=== PATIENT | male | born 1965 | race Caucasian/White ===

== ENCOUNTER 2016-08-15 13:17 | Emergency (ER) | payer SELFPAY ==
[~2016-08-15] VITALS: Ht 170.2 cm; Wt 109.0 kg
[~2016-08-15 13:17] MED LIST: ACETTAB3 OR; ALBUTEROL SUL0.083 % IN; AMOXICILLIN500 MG PO; ANUCORT-HC25 MG RE; ANUSOL HC25 MG RE; ASPIRIN LOW DOS81 M2 PO; AUGMENTIN875TAB OR; AVELOX400 MG OR; BL ADULT ASA81 MG OR; CELEXA40 MG PO; CEPHALEXIN500 M1 PO; CIPROFLOXACN500 MG PO; CITALOPRAM20 MG PO; CYCLOBENZAPR10 MG PO; HYDROCHLOROT12.5 MG PO; HYDROCHLOROT25 MG OR; HYDROCHLOROT25 MG PO; HYDROCHLOROTH12.5 MG OR; INCIVEK PO; KEFLEX500 MG PO; LASIX 20 MG TAB20 MG PO; LASIX20 MG PO; LISINOP/HCTZ1 TA2; LISINOP/HCTZ1 TA2 PO; LISINOPRIL20 M1 OR; LISINOPRIL20 M1 PO; LISINOPRIL20 MG OR; LISINOPRIL20 MG PO; LORTAB 5/3255 MG PO; LORTAB5 PO; MEDDOSEPAK PO; METFORMIN500 MG PO; METHOCARBAM500 MG PO; METHYLPRED4 M1 PO; METOPROLOL SUCC25 MG PO; METOPROLOL50 MG OR; NEURONTIN300 MG PO; NITROSTAT0.4 MG SL; ONETOUCH SC; OXYCODONE5 MG PO; PEGASYS180 MCG/M SC; PREDNISONE20 MG PO; PRINZIDE/ZESTOR1 TAB OR; PROAIR HFA IN; PROCTOFOAM HC10 GM RE; PROTONIX40 MG OR; PROVENTIL HFA IN; PROVENTIL0.083 % IN; RIBAVIRIN200 M1 OR; ROBITUSSIN PEAK COL4 OR; SYMBICORT1 AE1 IN; VENTOLIN HFA IN; VICODIN1 TAB OR; XIFAXAN550 MG PO; ZESTRIL5 MG OR; [UNRECOGNIZED DRUG - CODE] SC
[2016-08-15 14:14] LABS: ALBUMIN 4.9 g/dL (3.2-5.0); ALKALINE PHOSPHATASE 104 u/l (38-126); AMYLASE 69 u/l (30-110); ANION GAP 19 (6-22 (CALC)); BILIRUBIN, TOTAL 1.4 mg/dL (0.0-1.4); BUN 11 mg/dL (9-20); BUN/CREATININE RATIO 11 (12-20 (CALC)); CALCIUM 10.2 mg/dL (8.4-10.2); CARBON DIOXIDE 21 mmol/l (22-30); CHLORIDE 106 mmol/l (95-108); GFR > 60 ML/MIN (>=60 (CALC)); GFR FOR AFR.AMER. > 60 ML/MIN (>=60 (CALC)); GLUCOSE 91 mg/dL (75-110); LIPASE 110 u/l (23-300); POTASSIUM 4.6 mmol/l (3.5-5.1); SGOT/AST 32 u/l (17-59); SGPT/ALT 34 u/l (21-72); SODIUM 142 mmol/l (137-146); TOTAL PROTEIN 8.7 g/dL (6.3-8.2)
[2016-08-15 14:24] LABS: HEMATOCRIT 51.4 % (39.0-50.0); HEMOGLOBIN 17.2 g/dl (14.0-18.0); IMMATURE GRANULOCYTES 0.5 % (0.0-1.0); MEAN CELL VOLUME 88.8 fL CALC (80.0-100.0); MEAN CORPUSCULAR HGB 29.7 pG CALC (26.0-32.0); MEAN CORPUSCULAR HGB CONC 33.5 g/L CALC (32.0-36.0); NEUT# 7.55 thou/uL (1.82-7.42); RED BLOOD COUNT 5.79 mill/uL (4.70-6.10); RED CELL DISTRI WIDTH 12.9 % (11.5-15.5)
[2016-08-15 15:46] VITALS: BP 185/113
[2016-08-15 15:49] LABS: URINE BILIRUBIN - DIPSTICK NEGATIVE (NEGATIVE); URINE BLOOD DIPSTICK NEGATIVE (NEGATIVE); URINE CLARITY CLEAR; URINE COLOR YELLOW; URINE GLUCOSE - DIPSTICK NEGATIVE (NEGATIVE); URINE KETONE NEGATIVE (NEGATIVE); URINE LEUK ESTERASE NEGATIVE (NEGATIVE); URINE NITRITE - DIPSTICK NEGATIVE (Negative); URINE PROTEIN - DIPSTICK NEGATIVE (NEG-TRACE); URINE UROBILINOGEN - DIPSTICK 0.2 E.U./dL (0.2)
[2016-08-15] MEDS ORDERED: ULTRAM50 M1 PO (16:08)
[2016-08-15] MEDS ORDERED: FLEXERIL PO (16:08)
[2016-08-15 16:45] LABS: C. DIFFICILE TOXIN A&B NEGATIVE (NEGATIVE)
[2016-08-15] MEDS ORDERED: ZITHROMAX250 MG PO (17:26)
== END 2016-08-15 17:35 | disposition home or self-care (01) | DRG 392 ==
LOC: ED 13:17
PROVIDERS: Emergency Medicine
DX: R10.9 Unspecified abdominal pain (principal); I10 Essential (primary) hypertension; M54.9 Dorsalgia, unspecified; M79.1 Myalgia; I25.2 Old myocardial infarction; E66.9 Obesity, unspecified; B19.20 Unspecified viral hepatitis C without hepatic coma; J44.9 Chronic obstructive pulmonary disease, unspecified; E11.9 Type 2 diabetes mellitus without complications; F31.9 Bipolar disorder, unspecified; F17.210 Nicotine dependence, cigarettes, uncomplicated
CPT/HCPCS: Q9967

== ENCOUNTER 2016-08-16 16:56 | Emergency (ER) | payer SELFPAY ==
[~2016-08-16] VITALS: Ht 170.2 cm; Wt 105.0 kg
[~2016-08-16 16:56] MED LIST changes: +FLEXERIL PO; +ULTRAM50 M1 PO; +ZITHROMAX250 MG PO
[2016-08-16 17:20] LABS: HEMATOCRIT 47.5 % (39.0-50.0); IMMATURE GRANULOCYTES 0.5 % (0.0-1.0); MEAN CELL VOLUME 89.3 fL CALC (80.0-100.0); MEAN CORPUSCULAR HGB 30.1 pG CALC (26.0-32.0); MEAN CORPUSCULAR HGB CONC 33.7 g/L CALC (32.0-36.0); NEUT# 7.77 thou/uL (1.82-7.42); RED BLOOD COUNT 5.32 mill/uL (4.70-6.10); RED CELL DISTRI WIDTH 12.7 % (11.5-15.5)
[2016-08-16 17:44] LABS: MYOGLOBIN 66 ng/mL (0 - 121)
[2016-08-16 18:21] LABS: ALBUMIN 3.8 g/dL (3.2-5.0); ALKALINE PHOSPHATASE 86 u/l (38-126); ANION GAP 14 (6-22 (CALC)); BILIRUBIN, TOTAL 1.1 mg/dL (0.0-1.4); BUN 11 mg/dL (9-20); BUN/CREATININE RATIO 10 (12-20 (CALC)); CALCIUM 8.9 mg/dL (8.4-10.2); CARBON DIOXIDE 20 mmol/l (22-30); CHLORIDE 107 mmol/l (95-108); GFR > 60 ML/MIN (>=60 (CALC)); GFR FOR AFR.AMER. > 60 ML/MIN (>=60 (CALC)); GLUCOSE 123 mg/dL (75-110); POTASSIUM 3.8 mmol/l (3.5-5.1); SGOT/AST 32 u/l (17-59); SGPT/ALT 33 u/l (21-72); SODIUM 138 mmol/l (137-146); TOTAL PROTEIN 7.1 g/dL (6.3-8.2)
[2016-08-16 18:22] VITALS: BP 100/68
== END 2016-08-16 18:24 | disposition left against medical advice (07) | DRG 312 ==
LOC: ED 16:56
PROVIDERS: Emergency Medicine
DX: R55 Syncope and collapse (principal); I10 Essential (primary) hypertension; Z91.19 Patient's noncompliance with other medical treatment and regimen; R94.31 Abnormal electrocardiogram [ECG] [EKG]; I25.2 Old myocardial infarction

== ENCOUNTER 2017-03-02 11:49 | Emergency (ER) | payer SELFPAY ==
[~2017-03-02] VITALS: Ht 170.2 cm; Wt 110.0 kg
[2017-03-02 12:43] LABS: HEMATOCRIT 48.3 % (39.0-50.0); HEMOGLOBIN 16.3 g/dl (14.0-18.0); IMMATURE GRANULOCYTES 0.4 % (0.0-1.0); MEAN CELL VOLUME 91.5 fL CALC (80.0-100.0); MEAN CORPUSCULAR HGB 30.9 pG CALC (26.0-32.0); MEAN CORPUSCULAR HGB CONC 33.7 g/L CALC (32.0-36.0); NEUT# 6.52 thou/uL (1.82-7.42); RED BLOOD COUNT 5.28 mill/uL (4.70-6.10); RED CELL DISTRI WIDTH 13.7 % (11.5-15.5)
[2017-03-02 13:07] LABS: ALBUMIN 4.6 g/dL (3.2-5.0); ALKALINE PHOSPHATASE 89 u/l (38-126); ANION GAP 20 (6-22 (CALC)); BILIRUBIN, TOTAL 1.1 mg/dL (0.0-1.4); BUN 7 mg/dL (9-20); BUN/CREATININE RATIO 8 (12-20 (CALC)); CALCIUM 9.6 mg/dL (8.4-10.2); CARBON DIOXIDE 21 mmol/l (22-30); CHLORIDE 112 mmol/l (95-108); CREATININE 0.9 mg/dL (0.7-1.3); GFR > 60 ML/MIN (>=60 (CALC)); GFR FOR AFR.AMER. > 60 ML/MIN (>=60 (CALC)); GLUCOSE 101 mg/dL (75-110); POTASSIUM 4.1 mmol/l (3.5-5.1); SGOT/AST 41 u/l (17-59); SGPT/ALT 51 u/l (21-72); SODIUM 149 mmol/l (137-146)
[2017-03-02 13:19] LABS: MYOGLOBIN 67 ng/mL (0 - 121)
[2017-03-02 14:00] LABS: URINE BILIRUBIN - DIPSTICK NEGATIVE (NEGATIVE); URINE BLOOD DIPSTICK NEGATIVE (NEGATIVE); URINE COLOR YELLOW; URINE GLUCOSE - DIPSTICK NEGATIVE (NEGATIVE); URINE KETONE NEGATIVE (NEGATIVE); URINE LEUK ESTERASE NEGATIVE (NEGATIVE); URINE NITRITE - DIPSTICK NEGATIVE (Negative); URINE PROTEIN - DIPSTICK NEGATIVE (NEG-TRACE); URINE SPECIFIC GRAVITY <=1.005; URINE UROBILINOGEN - DIPSTICK 0.2 E.U./dL (0.2)
[2017-03-02 14:04] VITALS: BP 172/108
[2017-03-02 14:09] LABS: URINE CLARITY CLEAR
[2017-03-02 14:11] LABS: BARBITURATES NEGATIVE (NEGATIVE); COCAINE NEGATIVE (NEGATIVE); METHADONE NEGATIVE (NEGATIVE); OXCYCODONE NEGATIVE (NEGATIVE); TETRAHYDROCANNABIONOL POSITIVE (NEGATIVE); TRICYLIC ANTIDEPRESSANTS NEGATIVE (NEGATIVE)
== END 2017-03-02 14:04 | disposition left against medical advice (07) | DRG 313 ==
LOC: ED 11:49
PROVIDERS: Emergency Medicine
DX: R07.9 Chest pain, unspecified (principal); I25.2 Old myocardial infarction; B19.20 Unspecified viral hepatitis C without hepatic coma; E11.9 Type 2 diabetes mellitus without complications; I10 Essential (primary) hypertension; E66.9 Obesity, unspecified; F31.9 Bipolar disorder, unspecified; J44.9 Chronic obstructive pulmonary disease, unspecified; F17.210 Nicotine dependence, cigarettes, uncomplicated; Z86.73 Personal history of transient ischemic attack (TIA), and cerebral infarction without residual deficits; Z91.19 Patient's noncompliance with other medical treatment and regimen

== ENCOUNTER 2017-03-22 12:23 | Emergency (ER) | payer SELFPAY ==
[~2017-03-22] VITALS: Ht 170.2 cm; Wt 110.0 kg
[2017-03-22] MEDS ORDERED: XANAX1 MG PO (12:35)
[2017-03-22] MEDS ORDERED: AMBIEN5 MG PO (12:35)
[2017-03-22] MEDS ORDERED: VENLAFAXINE HCL75 M1 PO (12:36)
[2017-03-22] MEDS ORDERED: LISINOPRIL20 M1 PO (12:37)
[2017-03-22] MEDS ORDERED: TORADOL PO (15:07)
[2017-03-22] MEDS ORDERED: FLEXERIL PO (15:07)
[2017-03-22 15:13] VITALS: BP 150/80
== END 2017-03-22 15:13 | disposition home or self-care (01) | DRG 605 ==
LOC: ED 12:23
DX: S20.212A Contusion of left front wall of thorax, initial encounter (principal); F17.210 Nicotine dependence, cigarettes, uncomplicated; R06.02 Shortness of breath; S22.32XD Fracture of one rib, left side, subsequent encounter for fracture with routine healing; W19.XXXA Unspecified fall, initial encounter; Y93.9 Activity, unspecified; Y92.009 Unspecified place in unspecified non-institutional (private) residence as the place of occurrence of the external cause

== ENCOUNTER 2017-04-13 13:17 | Emergency (ER) | payer SELFPAY ==
[~2017-04-13] VITALS: Ht 170.2 cm; Wt 100.0 kg
[~2017-04-13 13:17] MED LIST changes: +AMBIEN5 MG PO; +TORADOL PO; +VENLAFAXINE HCL75 M1 PO; +XANAX1 MG PO
[2017-04-13 14:05] LABS: HEMOGLOBIN 17.3 g/dl (14.0-18.0); IMMATURE GRANULOCYTES 0.6 % (0.0-1.0); MEAN CELL VOLUME 89.9 fL CALC (80.0-100.0); MEAN CORPUSCULAR HGB 31.1 pG CALC (26.0-32.0); MEAN CORPUSCULAR HGB CONC 34.6 g/L CALC (32.0-36.0); NEUT# 7.51 thou/uL (1.82-7.42); RED BLOOD COUNT 5.56 mill/uL (4.70-6.10); RED CELL DISTRI WIDTH 12.5 % (11.5-15.5)
[2017-04-13 14:16] LABS: ALBUMIN 4.5 g/dL (3.2-5.0); ALKALINE PHOSPHATASE 105 u/l (38-126); ANION GAP 16 (6-22 (CALC)); BILIRUBIN, TOTAL 1.2 mg/dL (0.0-1.4); BUN 11 mg/dL (9-20); BUN/CREATININE RATIO 11 (12-20 (CALC)); CALCIUM 10.2 mg/dL (8.4-10.2); CARBON DIOXIDE 19 mmol/l (22-30); CHLORIDE 110 mmol/l (95-108); GFR > 60 ML/MIN (>=60 (CALC)); GFR FOR AFR.AMER. > 60 ML/MIN (>=60 (CALC)); GLUCOSE 106 mg/dL (75-110); POTASSIUM 4.3 mmol/l (3.5-5.1); SGOT/AST 30 u/l (17-59); SGPT/ALT 37 u/l (21-72); SODIUM 141 mmol/l (137-146); TOTAL PROTEIN 7.6 g/dL (6.3-8.2)
[2017-04-13 14:25] LABS: MYOGLOBIN 38 ng/mL (0 - 121)
[2017-04-13] MEDS ORDERED: LISINOPRIL20 MG PO (15:23)
[2017-04-13] MEDS ORDERED: TORADOL PO (15:23)
[2017-04-13 15:35] VITALS: BP 161/112
== END 2017-04-13 15:35 | disposition home or self-care (01) | DRG 313 ==
LOC: ED 13:17
PROVIDERS: Emergency Medicine
DX: R07.89 Other chest pain (principal); S20.212D Contusion of left front wall of thorax, subsequent encounter; Z91.81 History of falling

== ENCOUNTER 2017-07-02 15:38 | Emergency (ER) | payer SELFPAY ==
[~2017-07-02] VITALS: Ht 170.2 cm; Wt 104.0 kg
[2017-07-02] MEDS ORDERED: MOTRIN400 MG PO (17:21)
[2017-07-02] MEDS ORDERED: AUGMENTIN875TAB PO (17:21)
[2017-07-02] MEDS ORDERED: HYDROCO/APAP1 TA9 PO (17:21)
[2017-07-02 18:09] VITALS: BP 145/75
== END 2017-07-02 18:09 | disposition home or self-care (01) | DRG 605 ==
LOC: ED 15:38
PROC: 0HQFXZZ Repair Right Hand Skin, External Approach (ICD-10-PCS; principal; 2017-07-02)
DX: S61.451A Open bite of right hand, initial encounter (principal); S61.250A Open bite of right index finger without damage to nail, initial encounter; J43.9 Emphysema, unspecified; B19.20 Unspecified viral hepatitis C without hepatic coma; I25.2 Old myocardial infarction; F17.210 Nicotine dependence, cigarettes, uncomplicated; W54.0XXA Bitten by dog, initial encounter; Y92.009 Unspecified place in unspecified non-institutional (private) residence as the place of occurrence of the external cause; Z86.73 Personal history of transient ischemic attack (TIA), and cerebral infarction without residual deficits

== ENCOUNTER 2017-08-09 10:59 | Emergency (ER) | payer SELFPAY ==
[~2017-08-09] VITALS: Ht 170.2 cm; Wt 100.0 kg
[~2017-08-09 10:59] MED LIST changes: +AUGMENTIN875TAB PO; +HYDROCO/APAP1 TA9 PO; +MOTRIN400 MG PO
[2017-08-09] MEDS ORDERED: VENLAFAXINE HCL75 M1 PO (11:08)
[2017-08-09] MEDS ORDERED: SINEQUAN10 MG PO (11:09)
[2017-08-09 11:38] LABS: HEMATOCRIT 48.1 % (39.0-50.0); HEMOGLOBIN 16.1 g/dl (14.0-18.0); IMMATURE GRANULOCYTES 0.4 % (0.0-1.0); MEAN CELL VOLUME 90.2 fL CALC (80.0-100.0); MEAN CORPUSCULAR HGB 30.2 pG CALC (26.0-32.0); MEAN CORPUSCULAR HGB CONC 33.5 g/L CALC (32.0-36.0); NEUT# 6.24 thou/uL (1.82-7.42); RED BLOOD COUNT 5.33 mill/uL (4.70-6.10); RED CELL DISTRI WIDTH 13.2 % (11.5-15.5)
[2017-08-09 11:50] LABS: INFLUENZA A NONE DETECTED (NONE DETECT); INFLUENZA B NONE DETECTED (NONE DETECT)
[2017-08-09 11:54] LABS: ANION GAP 18 (6-22 (CALC)); BUN 7 mg/dL (9-20); BUN/CREATININE RATIO 9 (12-20 (CALC)); CARBON DIOXIDE 20 mmol/l (22-30); CHLORIDE 110 mmol/l (95-108); CREATININE 0.8 mg/dL (0.7-1.3); GFR > 60 ML/MIN (>=60 (CALC)); GFR FOR AFR.AMER. > 60 ML/MIN (>=60 (CALC)); POTASSIUM 3.8 mmol/l (3.5-5.1); SODIUM 144 mmol/l (137-146)
[2017-08-09] MEDS ORDERED: CEPHALEXIN500 M1 PO (12:12)
[2017-08-09] MEDS ORDERED: PREDNISONE50 MG PO (12:12)
[2017-08-09] MEDS ORDERED: ZPAK PO (12:12)
[2017-08-09 12:24] VITALS: BP 161/104
== END 2017-08-09 12:30 | disposition home or self-care (01) | DRG 191 ==
LOC: ED 10:59
PROVIDERS: Family Medicine
DX: J44.1 Chronic obstructive pulmonary disease with (acute) exacerbation (principal); L03.113 Cellulitis of right upper limb; S61.451D Open bite of right hand, subsequent encounter; F17.210 Nicotine dependence, cigarettes, uncomplicated; I10 Essential (primary) hypertension; I25.2 Old myocardial infarction; W54.0XXD Bitten by dog, subsequent encounter; Z86.73 Personal history of transient ischemic attack (TIA), and cerebral infarction without residual deficits

== ENCOUNTER 2017-09-11 17:44 | Emergency (ER) | payer SELFPAY ==
[~2017-09-11] VITALS: Ht 170.2 cm; Wt 100.0 kg
[~2017-09-11 17:44] MED LIST changes: +PREDNISONE50 MG PO; +SINEQUAN10 MG PO; +ZPAK PO
[2017-09-11 18:33] VITALS: BP 145/95
== END 2017-09-11 18:36 | disposition home or self-care (01) | DRG 880 ==
LOC: ED 17:44
DX: F41.9 Anxiety disorder, unspecified (principal); F31.9 Bipolar disorder, unspecified; I10 Essential (primary) hypertension; J43.9 Emphysema, unspecified; B19.20 Unspecified viral hepatitis C without hepatic coma; I25.2 Old myocardial infarction; F17.210 Nicotine dependence, cigarettes, uncomplicated; Z86.73 Personal history of transient ischemic attack (TIA), and cerebral infarction without residual deficits; Z91.14 Patient's other noncompliance with medication regimen; Z79.899 Other long term (current) drug therapy

== ENCOUNTER 2018-04-27 19:30 | Emergency (ER) | payer SELFPAY ==
[~2018-04-27] VITALS: Ht 170.2 cm; Wt 105.2 kg
[2018-04-27 19:55] VITALS: BP 192/121
== END 2018-04-27 20:05 | disposition left against medical advice (07) | DRG 951 ==
LOC: ED 19:30
DX: Z91.19 Patient's noncompliance with other medical treatment and regimen (principal)

== ENCOUNTER 2018-05-01 18:23 | Emergency (ER) | payer BC ==
[~2018-05-01] VITALS: Ht 170.2 cm; Wt 104.8 kg
[2018-05-01 19:45] LABS: HEMATOCRIT 49.4 % (39.0-50.0); HEMOGLOBIN 16.8 g/dl (14.0-18.0); IMMATURE GRANULOCYTES 0.4 % (0.0-5.0); MEAN CELL VOLUME 90.1 fL CALC (80.0-100.0); MEAN CORPUSCULAR HGB 30.7 pG CALC (26.0-32.0); NEUT# 6.56 thou/uL (1.82-7.42); RED BLOOD COUNT 5.48 mill/uL (4.70-6.10); RED CELL DISTRI WIDTH 12.8 % (11.5-15.5)
[2018-05-01 20:01] LABS: ALBUMIN 4.4 g/dL (3.2-5.0); ALKALINE PHOSPHATASE 92 u/l (38-126); AMYLASE < 30 u/l (30-110); ANION GAP 14 (6-22 (CALC)); BUN 10 mg/dL (9-20); BUN/CREATININE RATIO 12 (12-20 (CALC)); CARBON DIOXIDE 22 mmol/l (22-30); CHLORIDE 109 mmol/l (95-108); CREATININE 0.9 mg/dL (0.7-1.3); GFR > 60 ML/MIN (>=60 (CALC)); GFR FOR AFR.AMER. > 60 ML/MIN (>=60 (CALC)); LIPASE 45 u/l (23-300); POTASSIUM 3.6 mmol/l (3.5-5.1); SGOT/AST 26 u/l (17-59); SODIUM 141 mmol/l (137-146); TOTAL PROTEIN 7.6 g/dL (6.3-8.2)
[2018-05-01 20:10] LABS: URINE BILIRUBIN - DIPSTICK NEGATIVE (NEGATIVE); URINE BLOOD DIPSTICK NEGATIVE (NEGATIVE); URINE COLOR YELLOW; URINE GLUCOSE - DIPSTICK NEGATIVE (NEGATIVE); URINE KETONE TRACE mg/dL (NEGATIVE); URINE LEUK ESTERASE NEGATIVE (NEGATIVE); URINE NITRITE - DIPSTICK NEGATIVE (Negative); URINE PH 7.5 (4.5-8.0); URINE PROTEIN - DIPSTICK NEGATIVE (NEG-TRACE); URINE SPECIFIC GRAVITY 1.015
[2018-05-01 20:13] LABS: BARBITURATES NEGATIVE (NEGATIVE); COCAINE NEGATIVE (NEGATIVE); METHADONE NEGATIVE (NEGATIVE); OXCYCODONE NEGATIVE (NEGATIVE); TETRAHYDROCANNABIONOL POSITIVE (NEGATIVE); TRICYLIC ANTIDEPRESSANTS NEGATIVE (NEGATIVE)
[2018-05-01 21:21] VITALS: BP 159/86
[2018-05-01] MEDS ORDERED: NAPROSYN500 MG PO (21:21)
== END 2018-05-01 21:33 | disposition home or self-care (01) | DRG 392 ==
LOC: ED 18:23
PROVIDERS: Emergency Medicine
DX: R10.11 Right upper quadrant pain (principal); I10 Essential (primary) hypertension; J43.9 Emphysema, unspecified; I25.2 Old myocardial infarction; T46.5X6A Underdosing of other antihypertensive drugs, initial encounter; F17.200 Nicotine dependence, unspecified, uncomplicated; B19.20 Unspecified viral hepatitis C without hepatic coma; Z86.73 Personal history of transient ischemic attack (TIA), and cerebral infarction without residual deficits; Z91.128 Patient's intentional underdosing of medication regimen for other reason
CPT/HCPCS: Q9967; S0164

== ENCOUNTER 2018-06-08 11:32 | Emergency (ER) | payer BC ==
[~2018-06-08] VITALS: Ht 170.2 cm; Wt 105.0 kg
[~2018-06-08 11:32] MED LIST changes: +NAPROSYN500 MG PO
[2018-06-08] MEDS ORDERED: WELLBUTRIN SR150 MG PO (11:45)
[2018-06-08] MEDS ORDERED: PROAIR HFA IN (11:46)
[2018-06-08] MEDS ORDERED: PROVENTIL0.083 % IN (11:47)
[2018-06-08] MEDS ORDERED: SINEQUAN10 MG PO (11:49)
[2018-06-08 11:51] LABS: HEMATOCRIT 49.8 % (39.0-50.0); HEMOGLOBIN 16.5 g/dl (14.0-18.0); IMMATURE GRANULOCYTES 0.5 % (0.0-5.0); MEAN CELL VOLUME 89.1 fL CALC (80.0-100.0); MEAN CORPUSCULAR HGB 29.5 pG CALC (26.0-32.0); MEAN CORPUSCULAR HGB CONC 33.1 g/L CALC (32.0-36.0); NEUT# 11.78 thou/uL (1.82-7.42); RED BLOOD COUNT 5.59 mill/uL (4.70-6.10); RED CELL DISTRI WIDTH 12.6 % (11.5-15.5)
[2018-06-08 12:05] VITALS: BP 145/86
[2018-06-08 12:12] LABS: ANION GAP 15 (6-22 (CALC)); BUN 7 mg/dL (9-20); BUN/CREATININE RATIO 9 (12-20 (CALC)); CARBON DIOXIDE 18 mmol/l (22-30); CHLORIDE 109 mmol/l (95-108); CREATININE 0.8 mg/dL (0.7-1.3); GFR > 60 ML/MIN (>=60 (CALC)); GFR FOR AFR.AMER. > 60 ML/MIN (>=60 (CALC)); POTASSIUM 3.7 mmol/l (3.5-5.1); SODIUM 138 mmol/l (137-146)
== END 2018-06-08 12:14 | disposition short-term general hospital (02) | DRG 282 ==
LOC: ED 11:32
PROVIDERS: Family Medicine
DX: I21.19 ST elevation (STEMI) myocardial infarction involving other coronary artery of inferior wall (principal); I25.2 Old myocardial infarction; I10 Essential (primary) hypertension; R07.9 Chest pain, unspecified; R11.0 Nausea; R06.02 Shortness of breath; F17.200 Nicotine dependence, unspecified, uncomplicated
CPT/HCPCS: J1644

== ENCOUNTER 2018-10-31 21:19 | Emergency (ER) | payer BC ==
[~2018-10-31] VITALS: Ht 170.2 cm; Wt 106.0 kg
[~2018-10-31 21:19] MED LIST changes: +WELLBUTRIN SR150 MG PO
[2018-10-31] MEDS ORDERED: LIPITOR10 M1 PO (21:33)
[2018-10-31] MEDS ORDERED: WELLBUTRIN SR150 MG PO (21:40)
[2018-10-31] MEDS ORDERED: VENLAFAXINE H37.5 MG PO ×2 (21:42)
[2018-10-31] MEDS ORDERED: XANAX1 MG PO (21:43)
[2018-10-31] MEDS ORDERED: DOXEPIN HCL50 MG PO (21:44)
[2018-10-31] MEDS ORDERED: AMBIEN5 MG PO (21:45)
[2018-10-31 22:06] LABS: HEMOGLOBIN 15.8 g/dl (14.0-18.0); IMMATURE GRANULOCYTES 0.4 % (0.0-5.0); MEAN CELL VOLUME 88.9 fL CALC (80.0-100.0); MEAN CORPUSCULAR HGB 29.3 pG CALC (26.0-32.0); MEAN CORPUSCULAR HGB CONC 32.9 g/L CALC (32.0-36.0); NEUT# 6.07 thou/uL (1.82-7.42); RED BLOOD COUNT 5.4 mill/uL (4.70-6.10); RED CELL DISTRI WIDTH 13.2 % (11.5-15.5)
[2018-10-31 22:25] LABS: ALBUMIN 4.7 g/dL (3.2-5.0); ALKALINE PHOSPHATASE 103 u/l (38-126); ANION GAP 15 (6-22 (CALC)); BILIRUBIN, TOTAL 0.7 mg/dL (0.0-1.4); BUN 13 mg/dL (9-20); BUN/CREATININE RATIO 13 (12-20 (CALC)); CHLORIDE 107 mmol/l (95-108); GFR > 60 ML/MIN (>=60 (CALC)); GFR FOR AFR.AMER. > 60 ML/MIN (>=60 (CALC)); SGOT/AST 40 u/l (17-59); SODIUM 142 mmol/l (137-146)
[2018-10-31 22:32] LABS: CARBON DIOXIDE 24 mmol/l (22-30)
[2018-10-31 22:37] LABS: MYOGLOBIN 90 ng/mL (0 - 121)
[2018-10-31 22:42] LABS: URINE BILIRUBIN - DIPSTICK NEGATIVE (NEGATIVE); URINE BLOOD DIPSTICK NEGATIVE (NEGATIVE); URINE COLOR YELLOW; URINE GLUCOSE - DIPSTICK NEGATIVE (NEGATIVE); URINE KETONE TRACE mg/dL (NEGATIVE); URINE LEUK ESTERASE NEGATIVE (NEGATIVE); URINE NITRITE - DIPSTICK NEGATIVE (Negative); URINE PH 5.5 (4.5-8.0); URINE PROTEIN - DIPSTICK NEGATIVE (NEG-TRACE); URINE SPECIFIC GRAVITY >=1.030; URINE UROBILINOGEN - DIPSTICK 0.2 E.U./dL (0.2)
[2018-10-31 22:46] LABS: BARBITURATES NEGATIVE (NEGATIVE); COCAINE NEGATIVE (NEGATIVE); METHADONE NEGATIVE (NEGATIVE); TETRAHYDROCANNABIONOL POSITIVE (NEGATIVE); TRICYLIC ANTIDEPRESSANTS POSITIVE (NEGATIVE)
[2018-10-31 22:47] LABS: OXCYCODONE NEGATIVE (NEGATIVE)
[2018-10-31] MEDS ORDERED: FIORICET PO (23:03)
[2018-10-31 23:11] VITALS: BP 165/91
== END 2018-10-31 23:15 | disposition home or self-care (01) | DRG 103 ==
LOC: ED 21:19
PROVIDERS: Emergency Medicine
DX: R51 Headache (principal); I10 Essential (primary) hypertension; J43.9 Emphysema, unspecified; B19.20 Unspecified viral hepatitis C without hepatic coma; F17.200 Nicotine dependence, unspecified, uncomplicated; I25.2 Old myocardial infarction; Z86.73 Personal history of transient ischemic attack (TIA), and cerebral infarction without residual deficits

== ENCOUNTER 2018-11-27 17:31 | Emergency (ER) | payer BC ==
[~2018-11-27] VITALS: Ht 170.2 cm; Wt 150.0 kg
[~2018-11-27 17:31] MED LIST changes: +DOXEPIN HCL50 MG PO; +FIORICET PO; +LIPITOR10 M1 PO; +VENLAFAXINE H37.5 MG PO
[2018-11-27 18:37] LABS: HEMATOCRIT 53.9 % (39.0-50.0); HEMOGLOBIN 17.7 g/dl (14.0-18.0); IMMATURE GRANULOCYTES 0.8 % (0.0-5.0); MEAN CELL VOLUME 88.4 fL CALC (80.0-100.0); MEAN CORPUSCULAR HGB CONC 32.8 g/L CALC (32.0-36.0); NEUT# 9.4 thou/uL (1.82-7.42); RED BLOOD COUNT 6.1 mill/uL (4.70-6.10); RED CELL DISTRI WIDTH 13.2 % (11.5-15.5)
[2018-11-27 18:44] LABS: ALBUMIN 5.3 g/dL (3.2-5.0); ALKALINE PHOSPHATASE 115 u/l (38-126); ANION GAP 16 (6-22 (CALC)); BUN 9 mg/dL (9-20); BUN/CREATININE RATIO 9 (12-20 (CALC)); C-REACTIVE PROTEIN < 0.5 mg/dL (0-0.9); CARBON DIOXIDE 23 mmol/l (22-30); CHLORIDE 108 mmol/l (95-108); CREATININE 0.9 mg/dL (0.7-1.3); GFR > 60 ML/MIN (>=60 (CALC)); GFR FOR AFR.AMER. > 60 ML/MIN (>=60 (CALC)); POTASSIUM 4.8 mmol/l (3.5-5.1); SODIUM 142 mmol/l (137-146); TOTAL PROTEIN 9.4 g/dL (6.3-8.2)
[2018-11-27 18:49] LABS: BILIRUBIN, TOTAL 1.2 mg/dL (0.0-1.4); SGOT/AST 75 u/l (17-59)
[2018-11-27 19:46] LABS: URINE BLOOD DIPSTICK NEGATIVE (NEGATIVE); URINE COLOR YELLOW; URINE GLUCOSE - DIPSTICK NEGATIVE (NEGATIVE); URINE KETONE NEGATIVE (NEGATIVE); URINE LEUK ESTERASE NEGATIVE (NEGATIVE); URINE NITRITE - DIPSTICK NEGATIVE (Negative); URINE PROTEIN - DIPSTICK NEGATIVE (NEG-TRACE)
[2018-11-27 19:48] LABS: URINE BILIRUBIN - DIPSTICK NEGATIVE (NEGATIVE)
[2018-11-27 19:49] LABS: COCAINE NEGATIVE (NEGATIVE); TETRAHYDROCANNABIONOL POSITIVE (NEGATIVE)
[2018-11-27 19:50] LABS: BARBITURATES NEGATIVE (NEGATIVE); METHADONE NEGATIVE (NEGATIVE); OXCYCODONE NEGATIVE (NEGATIVE); TRICYLIC ANTIDEPRESSANTS POSITIVE (NEGATIVE)
[2018-11-27 21:20] VITALS: BP 166/94
== END 2018-11-27 21:20 | disposition home or self-care (01) | DRG 305 ==
LOC: ED 17:31 → ED-I 11-28 01:03
PROVIDERS: Emergency Medicine
DX: I10 Essential (primary) hypertension (principal); F41.9 Anxiety disorder, unspecified; T45.0X5A Adverse effect of antiallergic and antiemetic drugs, initial encounter; J43.9 Emphysema, unspecified; B19.20 Unspecified viral hepatitis C without hepatic coma; I25.2 Old myocardial infarction; F17.210 Nicotine dependence, cigarettes, uncomplicated; Z86.73 Personal history of transient ischemic attack (TIA), and cerebral infarction without residual deficits
CPT/HCPCS: J2060

== ENCOUNTER 2019-03-14 | Emergency (ER) | payer BC ==
--- NOTE | 2019-03-14 12:55 | NUR ---
PT BROUGHT DIRECTLY TO ROOM FOR BEDSIDE TRIAGE. PT REPORTS RINGING IN EARS AND DIZZINESS X 2 DAYS, PT DENEIS ANY WEAKNESS TO EXTREMITIES. PT ABLE TO TRANSFER SELF TO BED WITH NO ASSIST. PT SPEECH CLEAR WITH NORMAL FACIAL SYMMETRY. VISUAL MCKEON INTACT. MD AT BEDSIDE. PT REPORTS SENSATION CHANGES TO RIGHT SIDE FACE PT UNABLE TO DESCRIBED CHANGES, HE DENIES DECREASE IN SENSATION STATES IT FEELS DIFFERENT. LAST KNOWN WELL WAS 03/12/19 AT 1300. IV INITIATED AND LABS COLLECTED. STROKE ALERT CALLED AT 1304
--- NOTE | 2019-03-14 13:05 | NUR ---
PT TAKEN DIRECTLY TO CT SCAN. DURING TRIP PT REPORTS HE HAS DIFFICULTY SAYING WHAT HE IS THINKING FOR THE PAST 2 DAYS WELL.
[2019-03-14 13:12] LABS: HEMATOCRIT 48.1 % (39.0-50.0); HEMOGLOBIN 16.1 g/dl (14.0-18.0); IMMATURE GRANULOCYTES 0.3 % (0.0-5.0); MEAN CELL VOLUME 89.2 fL CALC (80.0-100.0); MEAN CORPUSCULAR HGB 29.9 pG CALC (26.0-32.0); MEAN CORPUSCULAR HGB CONC 33.5 g/L CALC (32.0-36.0); NEUT# 4.97 thou/uL (1.82-7.42); RED BLOOD COUNT 5.39 mill/uL (4.70-6.10); RED CELL DISTRI WIDTH 13.1 % (11.5-15.5)
[2019-03-14 13:26] LABS: PROTHROMBIN TIME 10.8 SECONDS (9.0-12.5)
[2019-03-14 13:29] LABS: ALBUMIN 4.4 g/dL (3.2-5.0); ALKALINE PHOSPHATASE 82 u/l (38-126); ANION GAP 16 (6-22 (CALC)); BILIRUBIN, TOTAL 0.9 mg/dL (0.0-1.4); BUN 8 mg/dL (9-20); BUN/CREATININE RATIO 10 (12-20 (CALC)); CARBON DIOXIDE 23 mmol/l (22-30); CHLORIDE 105 mmol/l (95-108); CREATININE 0.7 mg/dL (0.7-1.3); GFR > 60 ML/MIN (>=60 (CALC)); GFR FOR AFR.AMER. > 60 ML/MIN (>=60 (CALC)); POTASSIUM 4.1 mmol/l (3.5-5.1); SGOT/AST 51 u/l (17-59); SODIUM 140 mmol/l (137-146); TOTAL PROTEIN 8.2 g/dL (6.3-8.2)
--- NOTE | 2019-03-14 13:30 | NUR ---
PT RETURNED FROM CT IN STABLE CONDITION. PT REPORT TO TEN FELXI.
--- NOTE | 2019-03-14 14:49 | NUR ---
Merchandise Flow Manager called by RAFY RIOS - wishes to admit Patient with diagnosis of CVA - Using Indicia criteria, play writer able to meet PAtient under Observation TIA with information available to play writer at this time. Merchandise Flow Manager called RAFY RIOS and relayed this information.
[2019-03-14 14:57] LABS: URINE BILIRUBIN - DIPSTICK NEGATIVE (NEGATIVE); URINE BLOOD DIPSTICK NEGATIVE (NEGATIVE); URINE COLOR YELLOW; URINE GLUCOSE - DIPSTICK NEGATIVE (NEGATIVE); URINE KETONE NEGATIVE (NEGATIVE); URINE LEUK ESTERASE NEGATIVE (NEGATIVE); URINE NITRITE - DIPSTICK NEGATIVE (Negative); URINE PROTEIN - DIPSTICK NEGATIVE (NEG-TRACE); URINE UROBILINOGEN - DIPSTICK 0.2 E.U./dL (0.2)
--- NOTE | 2019-03-14 15:41 | NUR ---
PT REPOSITIONS SELF ON STRETCHER. VSS. AWARE OF PENDING ADMIT.
[2019-03-14 16:27] LABS: CHOLESTEROL HDL RATIO 6.8 (<4.4 (CALC))
--- NOTE | 2019-03-14 16:45 | NUR ---
PT ADVISED OF CONTINUED WAIT TIME. DENIES ANY DISCOMFORT. VSS IV SITE HEALTHY
--- NOTE | 2019-03-14 17:13 | NUR ---
Patient decides to leave AMA. Multiple attempts made to ecourage patient to remain here for continued treatment. Explained to patient all risks of leaving against medical advice including . Pt verbalized understanding of all risks. Pt also encouraged to return to [facility] at any time, especially if symptoms continue or become worse. Pt verbalized understanding. ACCOMPANIED BY SON W/STEADY GAIT.
== END 2019-03-14 17:13 | disposition left against medical advice (07) | DRG 66 ==
PROVIDERS: Family Medicine; Internal Medicine
DX: I63.9 Cerebral infarction, unspecified (principal); R20.0 Anesthesia of skin; R47.01 Aphasia; H93.13 Tinnitus, bilateral; I10 Essential (primary) hypertension; J43.9 Emphysema, unspecified; F17.200 Nicotine dependence, unspecified, uncomplicated; I25.2 Old myocardial infarction; Z86.73 Personal history of transient ischemic attack (TIA), and cerebral infarction without residual deficits; Z91.19 Patient's noncompliance with other medical treatment and regimen
CPT/HCPCS: Q9967

== ENCOUNTER 2019-05-09 | Emergency (ER) | payer SELFPAY ==
[2019-05-09] MEDS ORDERED: TOPROL XL50 MG PO (16:27)
[2019-05-09 17:01] LABS: HEMATOCRIT 45.6 % (39.0-50.0); HEMOGLOBIN 14.9 g/dl (14.0-18.0); IMMATURE GRANULOCYTES 0.3 % (0.0-5.0); MEAN CELL VOLUME 89.2 fL CALC (80.0-100.0); MEAN CORPUSCULAR HGB 29.2 pG CALC (26.0-32.0); MEAN CORPUSCULAR HGB CONC 32.7 g/L CALC (32.0-36.0); NEUT# 7.07 thou/uL (1.82-7.42); RED BLOOD COUNT 5.11 mill/uL (4.70-6.10); RED CELL DISTRI WIDTH 13.1 % (11.5-15.5)
[2019-05-09 17:19] LABS: ALBUMIN 4.3 g/dL (3.2-5.0); ALKALINE PHOSPHATASE 86 u/l (38-126); ANION GAP 15 (6-22 (CALC)); BILIRUBIN, TOTAL 0.9 mg/dL (0.0-1.4); BUN 9 mg/dL (9-20); BUN/CREATININE RATIO 11 (12-20 (CALC)); CARBON DIOXIDE 22 mmol/l (22-30); CHLORIDE 106 mmol/l (95-108); CREATININE 0.8 mg/dL (0.7-1.3); GFR > 60 ML/MIN (>=60 (CALC)); GFR FOR AFR.AMER. > 60 ML/MIN (>=60 (CALC)); POTASSIUM 3.7 mmol/l (3.5-5.1); SGOT/AST 60 u/l (17-59); SODIUM 139 mmol/l (137-146); TOTAL PROTEIN 7.8 g/dL (6.3-8.2)
[2019-05-09 17:30] LABS: PROTHROMBIN TIME 10.9 SECONDS (9.0-12.5)
[2019-05-09] MEDS ORDERED: PROVENTIL108 MCG/AC IN (19:09)
[2019-05-09] MEDS ORDERED: ZITHROMAX Z-PA250 MG PO (19:09)
[2019-05-09] MEDS ORDERED: TESSALON PER100 MG PO (19:09)
[2019-05-09] MEDS ORDERED: MEDDOSEPAK PO (19:09)
== END 2019-05-09 20:00 | disposition home or self-care (01) | DRG 203 ==
PROVIDERS: Emergency Medicine
DX: J40 Bronchitis, not specified as acute or chronic (principal); I10 Essential (primary) hypertension; J43.9 Emphysema, unspecified; F17.210 Nicotine dependence, cigarettes, uncomplicated; I25.2 Old myocardial infarction; Z86.73 Personal history of transient ischemic attack (TIA), and cerebral infarction without residual deficits

== ENCOUNTER 2019-05-11 | Emergency (ER) | payer SELFPAY ==
[~2019-05-11] MED LIST changes: +PROVENTIL108 MCG/AC IN; +TESSALON PER100 MG PO; +TOPROL XL50 MG PO; +ZITHROMAX Z-PA250 MG PO
[2019-05-11 16:14] LABS: HEMATOCRIT 46.3 % (39.0-50.0); HEMOGLOBIN 15.5 g/dl (14.0-18.0); IMMATURE GRANULOCYTES 0.6 % (0.0-5.0); MEAN CELL VOLUME 88.9 fL CALC (80.0-100.0); MEAN CORPUSCULAR HGB 29.8 pG CALC (26.0-32.0); MEAN CORPUSCULAR HGB CONC 33.5 g/L CALC (32.0-36.0); NEUT# 6.58 thou/uL (1.82-7.42); RED BLOOD COUNT 5.21 mill/uL (4.70-6.10); RED CELL DISTRI WIDTH 13.2 % (11.5-15.5)
[2019-05-11 16:59] LABS: ALBUMIN 4.2 g/dL (3.2-5.0); ALKALINE PHOSPHATASE 81 u/l (38-126); ANION GAP 14 (6-22 (CALC)); BILIRUBIN, TOTAL 1.2 mg/dL (0.0-1.4); BUN 11 mg/dL (9-20); BUN/CREATININE RATIO 13 (12-20 (CALC)); CARBON DIOXIDE 22 mmol/l (22-30); CHLORIDE 102 mmol/l (95-108); CREATININE 0.9 mg/dL (0.7-1.3); GFR > 60 ML/MIN (>=60 (CALC)); GFR FOR AFR.AMER. > 60 ML/MIN (>=60 (CALC)); POTASSIUM 3.6 mmol/l (3.5-5.1); SGOT/AST 72 u/l (17-59); SODIUM 135 mmol/l (137-146); TOTAL PROTEIN 7.5 g/dL (6.3-8.2)
[2019-05-11 18:13] LABS: PROTHROMBIN TIME 10.9 SECONDS (9.0-12.5)
[2019-05-11 19:15] LABS: URINE BILIRUBIN - DIPSTICK NEGATIVE (NEGATIVE); URINE BLOOD DIPSTICK NEGATIVE (NEGATIVE); URINE COLOR YELLOW; URINE GLUCOSE - DIPSTICK NEGATIVE (NEGATIVE); URINE KETONE NEGATIVE (NEGATIVE); URINE LEUK ESTERASE NEGATIVE (NEGATIVE); URINE NITRITE - DIPSTICK NEGATIVE (Negative); URINE PH 5.5 (4.5-8.0); URINE PROTEIN - DIPSTICK NEGATIVE (NEG-TRACE); URINE UROBILINOGEN - DIPSTICK 0.2 E.U./dL (0.2)
== END 2019-05-11 19:50 | disposition short-term general hospital (02) | DRG 311 ==
PROVIDERS: Family Medicine
DX: I20.0 Unstable angina (principal); I10 Essential (primary) hypertension; J43.9 Emphysema, unspecified; I25.2 Old myocardial infarction; F17.210 Nicotine dependence, cigarettes, uncomplicated
CPT/HCPCS: J1644

== ENCOUNTER 2019-05-16 14:31 | Inpatient (IN) | payer SELFPAY ==
[~2019-05-16] VITALS: Ht 170.2 cm; Wt 113.0 kg
--- NOTE | 2019-05-16 14:31 | NUR ---
PATIENT TO ROOM VIA EMS AND PHYSICIAN AT BEDSIDE FOR EVAL
[2019-05-16 15:07] LABS: HEMOGLOBIN 16.2 g/dl (14.0-18.0); IMMATURE GRANULOCYTES 1.3 % (0.0-5.0); MEAN CELL VOLUME 87.3 fL CALC (80.0-100.0); MEAN CORPUSCULAR HGB 29.5 pG CALC (26.0-32.0); MEAN CORPUSCULAR HGB CONC 33.8 g/L CALC (32.0-36.0); NEUT# 15.57 thou/uL (1.82-7.42); RED BLOOD COUNT 5.5 mill/uL (4.70-6.10); RED CELL DISTRI WIDTH 12.7 % (11.5-15.5)
[2019-05-16 15:25] LABS: ALBUMIN 4.1 g/dL (3.2-5.0); ALKALINE PHOSPHATASE 97 u/l (38-126); ANION GAP 16 (6-22 (CALC)); BUN 13 mg/dL (9-20); BUN/CREATININE RATIO 17 (12-20 (CALC)); CARBON DIOXIDE 23 mmol/l (22-30); CHLORIDE 101 mmol/l (95-108); CREATININE 0.7 mg/dL (0.7-1.3); GFR > 60 ML/MIN (>=60 (CALC)); GFR FOR AFR.AMER. > 60 ML/MIN (>=60 (CALC)); POTASSIUM 4.1 mmol/l (3.5-5.1); SGOT/AST 70 u/l (17-59); SODIUM 136 mmol/l (137-146); TOTAL PROTEIN 7.3 g/dL (6.3-8.2)
--- NOTE | 2019-05-16 15:29 | NUR ---
PATIENT RESTING AWAITNG LAB AND RADIOLOGY RESULTS PATIENT DENIES ANY PAIN OR SOB AT THIS TIME
[2019-05-16 15:36] LABS: MYOGLOBIN 121 ng/mL (0 - 121)
[2019-05-16 15:40] LABS: BILIRUBIN, TOTAL 1.9 mg/dL (0.0-1.4)
--- NOTE | 2019-05-16 18:15 | NUR ---
REPORT RECEIVED. CARE ASSUMED. PATIENT RECEIVING ABX. AWARE OF ADMISSION. AWAITING NURSE ASSIGNMENT TO GIVE REPORT.
--- NOTE | 2019-05-16 18:30 | NUR ---
REPORT CALLED TO TEN SÁNCHEZ. PATIENT READIED FOR TRANSPORT TO FLOOR VIA STRETCHER, ON MONITOR.
--- NOTE | 2019-05-16 19:22 | NUR ---
PT ARRIVED TO FLOOR VIA WHEELCHAIR ACCOMPAINED BY ER STAFF. PT ALERT AND ORIENTED. NO APPARENT RESPIRATORY DISTRESS NOTED. PT DENIES ANY PAIN OR DISCOMFORT. PT AMBULATED WITH STEADY GAIT. ORIENTED TO ROOM AND CALL LIGHT SYSTEM. CALL LIGHT WITHIN REACH. WILL CONTINUE TO MONITOR.
[2019-05-16 19:25] VITALS: BP 183/109
--- NOTE | 2019-05-16 19:25 | NUR ---
PATIENT TO FLOOR VIA WHEELCHAIR, ON MONITOR, WITH RN.
[2019-05-16 20:20] VITALS: BP 155/105
[2019-05-16 21:15] VITALS: BP 174/96
--- NOTE | 2019-05-16 21:21 | NUR ---
ORDERS CLARIFIED WITH HAND BOOTMAKER PHYSICIAN.
[2019-05-16 22:02] LABS: URINE BILIRUBIN - DIPSTICK NEGATIVE (NEGATIVE); URINE BLOOD DIPSTICK NEGATIVE (NEGATIVE); URINE COLOR YELLOW; URINE GLUCOSE - DIPSTICK NEGATIVE (NEGATIVE); URINE KETONE NEGATIVE (NEGATIVE); URINE LEUK ESTERASE NEGATIVE (NEGATIVE); URINE NITRITE - DIPSTICK NEGATIVE (Negative); URINE PROTEIN - DIPSTICK NEGATIVE (NEG-TRACE); URINE UROBILINOGEN - DIPSTICK 0.2 E.U./dL (0.2)
[2019-05-16 23:15] VITALS: BP 165/92
--- NOTE | 2019-05-16 23:41 | NUR ---
RN ON SHIFT TO ADMINISTER IV APRESOLINE FOR SUSTAINED BP OF 165/92. WILL CONTINUE TO MONITOR.
[2019-05-17 01:15] VITALS: BP 151/74
--- NOTE | 2019-05-17 01:15 | NUR ---
BP NOW 151/74. PT RESTING IN BED WITH EYES CLOSED. NO APPARENT DISTRESS NOTED. WILL CONTINUE TO MONITOR.
[2019-05-17 03:30] VITALS: BP 128/71
--- NOTE | 2019-05-17 05:49 | NUR ---
PT RESTING IN BED WITH EYES CLOSED. NO APPARENT DISTRESS NOTED. CALL LIGHT WITHIN REACH. WILL CONTINUE TO MONITOR.
--- NOTE | 2019-05-17 07:45 | NUR ---
REPORT RECEIVED FROM SHIRA CHRISTIAN. PT RESTING IN BED ON RIGHT SIDE AND EYES CLOSED; AWAKENS TO VERBAL STIMULI; ORIENTED X 3. DENIES PAIN. RESPIRATIONS EVEN AND UNLABORED ON ROOM AIR. WHEEZING THROUGHOUT LUNGS; DENIES SOB. PLAN OF CARE REVIWED. PT ENCOURAGED TO VERBALIZE CONCERNS. STATES UNDERSTANDING. SAFETY MEASURES IN PLACE. CALL LIGHT WITHIN REACH.
[2019-05-17 08:00] VITALS: BP 140/72
--- NOTE | 2019-05-17 11:08 | NUR ---
PT CALLED REQUESTING BREATHING TREATMENT FOR SOB; RT AT BEDSIDE.
--- NOTE | 2019-05-17 12:04 | NUR ---
PT RESTING IN BED ON RIGHT SIDE; BREATHING HAS IMPROVED PT STATES BREATHING TREATMENT WAS EFFECTIVE. SPO2 97% ON ROOM AIR. IV SITE APPEARS HEALTHY AND FLUSHES. NO OTHER REQUESTS OR CONCERNS AT THIS TIME. CALL LIGHT WITHIN REACH.
[2019-05-17 16:00] VITALS: BP 129/86
[2019-05-17] MEDS ORDERED: METFORMIN1000 MG PO (16:12)
[2019-05-17] MEDS ORDERED: PROAIR HFA108 MCG/AC IN (16:12)
[2019-05-17] MEDS ORDERED: LISINOPRIL20 M1 PO (16:13)
[2019-05-17] MEDS ORDERED: ADVAIR DISKU IN (16:14)
[2019-05-17] MEDS ORDERED: DOXEPIN HCL50 MG PO (16:15)
[2019-05-17] MEDS ORDERED: SPIRIVA HANDIH18 MCG IN (16:16)
[2019-05-17] MEDS ORDERED: VENLAFAXINE150 MG PO (16:17)
[2019-05-17] MEDS ORDERED: ZOLPIDEM10 M1 PO (16:19)
[2019-05-17] MEDS ORDERED: BUPROPION HCL300 MG PO (16:20)
--- NOTE | 2019-05-17 17:40 | NUR ---
PT CALLED FOR BREATHING TREATMENT FOR SOB; RT AT BEDSIDE. XANAX GIVEN AT THIS TIME. ZOSYN INFUSING WITHOUT DIFFICULTY; IV SITE APPEARS HEALTHY.
--- NOTE | 2019-05-17 19:15 | NUR ---
REPORT FROM ASHANTI CAAL. PT RESTING IN BED WITH EYES CLOSED. PT WAKES EASILY. ALERT AND ORIENTED. PT DENIES ANY PAIN OR DISCOMFORT. NO APPARENT RESPIRATORY DISTRESS NOTED. DISCUSSED POC, PT VERBALIZED UNDERSTANDING. IV SITE APPEARS HEALTHY. TIMBER SIZER IN PLACE. CALL LIGHT WITHIN REACH. WILL CONTINUE TO MONITOR.
[2019-05-17 19:45] VITALS: BP 145/91
--- NOTE | 2019-05-17 23:04 | NUR ---
PT MEDICATED FOR ANXIETY UPON REQUEST. SNACK PROVIDED AND RT NOTIFIED OF PT NEED FOR BREATHING TX. NO APPARENT S/S OF RESPIRATORY DISTRESS NOTED. CALL LIGHT WITHIN REACH. WILL CONTINUE TO MONITOR.
[2019-05-18 00:24] VITALS: BP 137/80
--- NOTE | 2019-05-18 03:12 | NUR ---
PT RESTING IN BED WITH EYES CLOSED. NO APPARENT DISTRESS NOTED. CALL LIGHT WITHIN REACH. WILL CONTINUE TO MONITOR.
[2019-05-18 04:25] VITALS: BP 157/86
--- NOTE | 2019-05-18 07:10 | NUR ---
REPORT RECEIVED FROM SHIRA CHRISTIAN. PT RESTING ON BED ON LEFT SIDE WITH EYES CLOSED AND NO SIGNS OF DISTRESS. RESPIRATIONS EVEN AND UNLABORED ON ROOM AIR. AWAKENS SPONTANEOUSLY; ALERT AND ORIENTED. DENIES PAIN. ACCU CHECK 277. LUNGS HAVE EXPIRATORY WHEEZES; DRY COUGH. NO EDEMA. IV SITE APPEARS HEALTHY AND FLUSHES. SAFETY MEASURES IN PLACE. CALL LIGHT WITHIN REACH.
[2019-05-18 07:38] VITALS: BP 144/74
--- NOTE | 2019-05-18 11:09 | NUR ---
APRESOLINE AND XANAX GIVEN NOW FOR ELEVATED BLOOD PRESSURE. PT ADAMANT THAT HE WILL BE DISCHARGED TODAY. ENCOURAGED TO RELAX. 3 UNITS OF INSULIN GIVEN FOR ACCU CHECK OF 251.
[2019-05-18 12:00] VITALS: BP 177/105
[2019-05-18 12:42] VITALS: BP 136/75
--- NOTE | 2019-05-18 13:02 | NUR ---
BLOOD PRESSURE IMPROVED AND PT MORE RELAXED. ATE 100% OF LUNCH. ZOSYN INFUSED WITHOUT DIFFICULTY. NO OTHER REQUESTS OR CONCERNS AT THIS TIME.
[2019-05-18] MEDS ORDERED: WIXELA INHUB 101 AER IN (15:24)
[2019-05-18] MEDS ORDERED: IPRATROPIU0.5 MG/3 M IN (15:24)
[2019-05-18] MEDS ORDERED: AMOX/K CLAV875 M1 PO (15:24)
--- NOTE | 2019-05-18 15:46 | NUR ---
Discharge instructions given. Patient verbalizes understanding of same. Discharged in stable condition via Ambulatory to Home with spouse. All belongings sent with pt.
--- NOTE | 2019-05-23 14:15 | NUR ---
post discharge pneumonia follow up call made today. Pt. states his breathing is somewhat better, but not great. Says he had some chills, but no fever he is aware of. Has not seen PCP for follow up. Did not get discharge medications due to financial hardship. Pt. is attempting to qualify for Medicaid but has not gotten too far yet. Pt. is expecting a phone call from [facility] as the next step in the appproval process. Pt. states he has medications prescribed from [facility] at [facility] that he has been unable to fill. I contacted Micky Sanchez, Software Applications Engineer to investigate the possibility of assistance. Pharmacy will contact patient for further information if necessary.
--- NOTE | 2019-05-23 16:12 | NUR ---
s/w Yadira concerning patient's inability to pay for meds. After discussion with patient, meds were transferred to [facility] and filled via Direct Bill on 05/23/2019. 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
== END 2019-05-18 15:46 | disposition home or self-care (01) | DRG 190 ==
LOC: ED 14:31 → MS2 17:30
PROVIDERS: Emergency Medicine; ADMIT Internal Medicine; ATTEND Internal Medicine
DX: J43.9 Emphysema, unspecified (principal); J18.9 Pneumonia, unspecified organism; I10 Essential (primary) hypertension; F17.200 Nicotine dependence, unspecified, uncomplicated; B19.20 Unspecified viral hepatitis C without hepatic coma; I25.2 Old myocardial infarction; Z86.73 Personal history of transient ischemic attack (TIA), and cerebral infarction without residual deficits
CPT/HCPCS: Q9967

== ENCOUNTER 2020-06-02 11:31 | Emergency (ER) | payer OTHER ==
[~2020-06-02] VITALS: Ht 170.2 cm; Wt 109.0 kg
[~2020-06-02 11:31] MED LIST changes: +ADVAIR DISKU IN; +AMOX/K CLAV875 M1 PO; +BUPROPION HCL300 MG PO; +IPRATROPIU0.5 MG/3 M IN; +METFORMIN1000 MG PO; +PROAIR HFA108 MCG/AC IN; +SPIRIVA HANDIH18 MCG IN; +VENLAFAXINE150 MG PO; +WIXELA INHUB 101 AER IN; +ZOLPIDEM10 M1 PO
[2020-06-02 12:28] LABS: HEMOGLOBIN 16.9 g/dl (14.0-18.0); IMMATURE GRANULOCYTES 0.5 % (0.0-5.0); MEAN CELL VOLUME 90.4 fL CALC (80.0-100.0); MEAN CORPUSCULAR HGB 29.4 pG CALC (26.0-32.0); MEAN CORPUSCULAR HGB CONC 32.5 g/dL CAL (32.0-36.0); NEUT# 6.5 thou/uL (1.82-7.42); RED BLOOD COUNT 5.75 mill/uL (4.70-6.10); RED CELL DISTRI WIDTH 14.1 % (11.5-15.5)
[2020-06-02] MEDS ORDERED: XANAX1 MG PO (12:33)
[2020-06-02] MEDS ORDERED: SINEQUAN50 MG PO (12:34)
[2020-06-02] MEDS ORDERED: MARIJUANA (12:35)
[2020-06-02 12:40] LABS: URINE BILIRUBIN - DIPSTICK NEGATIVE (NEGATIVE); URINE BLOOD DIPSTICK NEGATIVE (NEGATIVE); URINE COLOR YELLOW; URINE GLUCOSE - DIPSTICK NEGATIVE (NEGATIVE); URINE KETONE NEGATIVE (NEGATIVE); URINE LEUK ESTERASE NEGATIVE (NEGATIVE); URINE NITRITE - DIPSTICK NEGATIVE (Negative); URINE PH 7.5 (4.5-8.0); URINE PROTEIN - DIPSTICK NEGATIVE (NEG-TRACE); URINE UROBILINOGEN - DIPSTICK 0.2 E.U./dL (0.2)
[2020-06-02 12:43] LABS: INTERNATIONAL NORMALIZED RATIO 1.1 RATIO (0.7-1.3); PROTHROMBIN TIME 10.9 SECONDS (9.0-12.5)
[2020-06-02 12:45] LABS: ALBUMIN 4.7 g/dL (3.2-5.0); ALKALINE PHOSPHATASE 80 u/l (38-126); AMYLASE 55 u/l (30-110); ANION GAP 15 (6-22 (CALC)); BILIRUBIN, TOTAL 1.2 mg/dL (0.0-1.4); BUN 8 mg/dL (9-20); BUN/CREATININE RATIO 10 (12-20 (CALC)); CARBON DIOXIDE 22 mmol/l (22-30); CHLORIDE 104 mmol/l (95-108); CREATININE 0.7 mg/dL (0.7-1.3); GFR > 60 ML/MIN (>=60 (CALC)); GFR FOR AFR.AMER. > 60 ML/MIN (>=60 (CALC)); LIPASE 31 u/l (23-300); POTASSIUM 4.2 mmol/l (3.5-5.1); SGOT/AST 56 u/l (17-59); SODIUM 137 mmol/l (137-146); TOTAL PROTEIN 8.7 g/dL (6.3-8.2)
[2020-06-02 12:55] LABS: MYOGLOBIN 66 ng/mL (0 - 121)
[2020-06-02] MEDS ORDERED: PREVACID30 M3 PO (14:19)
[2020-06-02 14:39] VITALS: BP 157/99
== END 2020-06-02 14:42 | disposition home or self-care (01) ==
LOC: ED 11:31
PROVIDERS: Emergency Medicine
DX: K62.5 Hemorrhage of anus and rectum (principal); K64.8 Other hemorrhoids; I10 Essential (primary) hypertension; J43.9 Emphysema, unspecified; B19.20 Unspecified viral hepatitis C without hepatic coma; F41.9 Anxiety disorder, unspecified; F17.210 Nicotine dependence, cigarettes, uncomplicated; I25.2 Old myocardial infarction; Z86.73 Personal history of transient ischemic attack (TIA), and cerebral infarction without residual deficits; Z20.822 Contact with and (suspected) exposure to COVID-19
CPT/HCPCS: Q9967; S0164

== ENCOUNTER 2020-06-20 19:03 | Emergency (ER) | payer OTHER ==
[~2020-06-20] VITALS: Ht 167.6 cm; Wt 109.0 kg
[~2020-06-20 19:03] MED LIST changes: +MARIJUANA; +PREVACID30 M3 PO; +SINEQUAN50 MG PO
[2020-06-20 19:26] LABS: HEMATOCRIT 48.9 % (39.0-50.0); HEMOGLOBIN 15.8 g/dl (14.0-18.0); IMMATURE GRANULOCYTES 0.5 % (0.0-5.0); MEAN CELL VOLUME 90.4 fL CALC (80.0-100.0); MEAN CORPUSCULAR HGB 29.2 pG CALC (26.0-32.0); MEAN CORPUSCULAR HGB CONC 32.3 g/dL CAL (32.0-36.0); NEUT# 9.11 thou/uL (1.82-7.42); RED BLOOD COUNT 5.41 mill/uL (4.70-6.10); RED CELL DISTRI WIDTH 14.6 % (11.5-15.5)
[2020-06-20 19:37] LABS: ALBUMIN 4.5 g/dL (3.2-5.0); ALKALINE PHOSPHATASE 88 u/l (38-126); ANION GAP 15 (6-22 (CALC)); BILIRUBIN, TOTAL 1.4 mg/dL (0.0-1.4); BUN 10 mg/dL (9-20); BUN/CREATININE RATIO 13 (12-20 (CALC)); CARBON DIOXIDE 20 mmol/l (22-30); CHLORIDE 105 mmol/l (95-108); CREATININE 0.7 mg/dL (0.7-1.3); GFR > 60 ML/MIN (>=60 (CALC)); GFR FOR AFR.AMER. > 60 ML/MIN (>=60 (CALC)); LIPASE 50 u/l (23-300); POTASSIUM 3.6 mmol/l (3.5-5.1); SGOT/AST 57 u/l (17-59); SODIUM 137 mmol/l (137-146)
[2020-06-20] MEDS ORDERED: DICLOFENAC SODI75 M1 PO (19:45)
[2020-06-20] MEDS ORDERED: LISINOPRIL40 MG PO (19:46)
[2020-06-20] MEDS ORDERED: ALPRAZOLAM1 MG PO (19:47)
[2020-06-20] MEDS ORDERED: SYMBICORT1 AE1 IN (19:49)
[2020-06-20 21:13] LABS: URINE BLOOD DIPSTICK NEGATIVE (NEGATIVE); URINE COLOR YELLOW; URINE GLUCOSE - DIPSTICK NEGATIVE (NEGATIVE); URINE KETONE NEGATIVE (NEGATIVE); URINE LEUK ESTERASE NEGATIVE (NEGATIVE); URINE PROTEIN - DIPSTICK NEGATIVE (NEG-TRACE); URINE SPECIFIC GRAVITY 1.015
[2020-06-20 21:14] LABS: URINE BILIRUBIN - DIPSTICK NEGATIVE (NEGATIVE); URINE NITRITE - DIPSTICK NEGATIVE (Negative)
[2020-06-20] MEDS ORDERED: VENTOLIN HFA IN (21:23)
[2020-06-20] MEDS ORDERED: DOXYCYCL HYC100 MG PO (21:23)
[2020-06-20] MEDS ORDERED: PREDNISONE50 MG PO (21:23)
[2020-06-20 21:41] VITALS: BP 142/85
== END 2020-06-20 22:07 | disposition home or self-care (01) ==
LOC: ED 19:03
DX: R07.9 Chest pain, unspecified (principal); J43.9 Emphysema, unspecified; F41.9 Anxiety disorder, unspecified; T42.4X6A Underdosing of benzodiazepines, initial encounter; T46.4X6A Underdosing of angiotensin-converting-enzyme inhibitors, initial encounter; I10 Essential (primary) hypertension; I25.2 Old myocardial infarction; F17.210 Nicotine dependence, cigarettes, uncomplicated; B19.20 Unspecified viral hepatitis C without hepatic coma; Z91.128 Patient's intentional underdosing of medication regimen for other reason; Z86.73 Personal history of transient ischemic attack (TIA), and cerebral infarction without residual deficits; Z20.822 Contact with and (suspected) exposure to COVID-19

== ENCOUNTER 2020-08-21 23:20 | Emergency (ER) | payer OTHER ==
[~2020-08-21] VITALS: Ht 167.6 cm; Wt 104.5 kg
[~2020-08-21 23:20] MED LIST changes: +ALPRAZOLAM1 MG PO; +DICLOFENAC SODI75 M1 PO; +DOXYCYCL HYC100 MG PO; +LISINOPRIL40 MG PO
[2020-08-21 23:49] LABS: HEMATOCRIT 54.5 % (39.0-50.0); IMMATURE GRANULOCYTES 0.5 % (0.0-5.0); MEAN CELL VOLUME 88.2 fL CALC (80.0-100.0); MEAN CORPUSCULAR HGB 29.3 pG CALC (26.0-32.0); MEAN CORPUSCULAR HGB CONC 33.2 g/dL CAL (32.0-36.0); NEUT# 9.84 thou/uL (1.82-7.42); RED BLOOD COUNT 6.18 mill/uL (4.70-6.10); RED CELL DISTRI WIDTH 13.6 % (11.5-15.5)
[2020-08-21 23:51] LABS: HEMOGLOBIN 18.1 g/dl (14.0-18.0)
[2020-08-22 00:08] LABS: ALBUMIN 4.8 g/dL (3.2-5.0); ALKALINE PHOSPHATASE 86 u/l (38-126); ANION GAP 20 (6-22 (CALC)); BUN 6 mg/dL (9-20); BUN/CREATININE RATIO 6 (12-20 (CALC)); CARBON DIOXIDE 18 mmol/l (22-30); CHLORIDE 106 mmol/l (95-108); CREATININE 0.9 mg/dL (0.7-1.3); GFR > 60 ML/MIN (>=60 (CALC)); GFR FOR AFR.AMER. > 60 ML/MIN (>=60 (CALC)); POTASSIUM 3.2 mmol/l (3.5-5.1); SGOT/AST 44 u/l (17-59); SODIUM 141 mmol/l (137-146); TOTAL PROTEIN 8.6 g/dL (6.3-8.2)
[2020-08-22 00:10] LABS: BILIRUBIN, TOTAL 2.1 mg/dL (0.0-1.4)
[2020-08-22] MEDS ORDERED: VENLAFAXINE37.5 M1 PO (00:26)
[2020-08-22 05:56] VITALS: BP 145/99
== END 2020-08-22 08:30 | disposition left against medical advice (07) ==
LOC: ED 23:20
PROVIDERS: Emergency Medicine
DX: R07.9 Chest pain, unspecified (principal); F41.9 Anxiety disorder, unspecified; I10 Essential (primary) hypertension; J43.9 Emphysema, unspecified; I25.2 Old myocardial infarction; B19.20 Unspecified viral hepatitis C without hepatic coma; F17.210 Nicotine dependence, cigarettes, uncomplicated; T42.4X6A Underdosing of benzodiazepines, initial encounter; Z91.128 Patient's intentional underdosing of medication regimen for other reason; Z86.73 Personal history of transient ischemic attack (TIA), and cerebral infarction without residual deficits; Z91.19 Patient's noncompliance with other medical treatment and regimen

== ENCOUNTER 2021-05-03 11:45 | Emergency (ER) | payer OTHER ==
[~2021-05-03] VITALS: Ht 167.6 cm; Wt 113.6 kg
[~2021-05-03 11:45] MED LIST changes: +VENLAFAXINE37.5 M1 PO
[2021-05-03 12:15] LABS: IMMATURE GRANULOCYTES 0.3 % (0.0-5.0); MEAN CELL VOLUME 92.3 fL CALC (80.0-100.0); MEAN CORPUSCULAR HGB 29.6 pG CALC (26.0-32.0); NEUT# 5.48 thou/uL (1.82-7.42); RED BLOOD COUNT 5.21 mill/uL (4.70-6.10); RED CELL DISTRI WIDTH 13.6 % (11.5-15.5)
[2021-05-03 12:17] LABS: HEMATOCRIT 48.1 % (39.0-50.0); HEMOGLOBIN 15.4 g/dl (14.0-18.0)
[2021-05-03 12:39] LABS: ALBUMIN 4.1 g/dL (3.2-5.0); ALKALINE PHOSPHATASE 106 u/l (38-126); BUN 5 mg/dL (9-20); BUN/CREATININE RATIO 8 (12-20 (CALC)); CHLORIDE 107 mmol/l (95-108); CREATININE 0.7 mg/dL (0.7-1.3); GFR > 60 ML/MIN (>=60 (CALC)); GFR FOR AFR.AMER. > 60 ML/MIN (>=60 (CALC)); LIPASE 56 u/l (23-300); SGOT/AST 50 u/l (17-59); SODIUM 138 mmol/l (137-146)
[2021-05-03 12:43] LABS: ANION GAP 13 (6-22 (CALC)); CARBON DIOXIDE 22 mmol/l (22-30); POTASSIUM 3.9 mmol/l (3.5-5.1)
[2021-05-03] MEDS ORDERED: TRAMADOL HYDROC50 M1 PO (14:09)
[2021-05-03 14:44] VITALS: BP 158/92
== END 2021-05-03 14:44 | disposition home or self-care (01) ==
LOC: ED 11:45
PROVIDERS: Family Medicine
DX: R07.81 Pleurodynia (principal); R59.0 Localized enlarged lymph nodes; I10 Essential (primary) hypertension; J43.9 Emphysema, unspecified; E66.9 Obesity, unspecified; I25.2 Old myocardial infarction; B19.20 Unspecified viral hepatitis C without hepatic coma; F41.9 Anxiety disorder, unspecified; F17.200 Nicotine dependence, unspecified, uncomplicated; W30.89XA Contact with other specified agricultural machinery, initial encounter; Y93.H1 Activity, digging, shoveling and raking; Z86.73 Personal history of transient ischemic attack (TIA), and cerebral infarction without residual deficits; Y92.007 Garden or yard of unspecified non-institutional (private) residence as the place of occurrence of the external cause
CPT/HCPCS: Q9967

== ENCOUNTER 2021-06-03 13:34 | Emergency (ER) | payer OTHER ==
[2021-06-03] VITALS (7 sets, daily range): BP systolic 144–202; BP diastolic 85–117
[~2021-06-03] VITALS: Ht 167.6 cm; Wt 113.0 kg
[~2021-06-03 13:34] MED LIST changes: +TRAMADOL HYDROC50 M1 PO
[2021-06-03 14:41] LABS: ALBUMIN 4.2 g/dL (3.2-5.0); ALKALINE PHOSPHATASE 115 u/l (38-126); AMYLASE 63 u/l (30-110); ANION GAP 14 (6-22 (CALC)); BILIRUBIN, TOTAL 0.6 mg/dL (0.0-1.4); BUN 7 mg/dL (9-20); BUN/CREATININE RATIO 10 (12-20 (CALC)); CARBON DIOXIDE 24 mmol/l (22-30); CHLORIDE 106 mmol/l (95-108); CREATININE 0.7 mg/dL (0.7-1.3); ETHYL ALCOHOL 0 mg/dl (0-30); GFR > 60 ML/MIN (>=60 (CALC)); GFR FOR AFR.AMER. > 60 ML/MIN (>=60 (CALC)); LIPASE 39 u/l (23-300); MAGNESIUM 1.9 mg/dL (1.6-2.3); POTASSIUM 3.9 mmol/l (3.5-5.1); SGOT/AST 46 u/l (17-59); SODIUM 140 mmol/l (137-146); TOTAL PROTEIN 7.9 g/dL (6.3-8.2)
[2021-06-03 14:49] LABS: HEMOGLOBIN 15.9 g/dl (14.0-18.0); IMMATURE GRANULOCYTES 0.6 % (0.0-5.0); MEAN CELL VOLUME 91.9 fL CALC (80.0-100.0); MEAN CORPUSCULAR HGB 29.8 pG CALC (26.0-32.0); MEAN CORPUSCULAR HGB CONC 32.4 g/dL CAL (32.0-36.0); NEUT# 6.12 thou/uL (1.82-7.42); RED BLOOD COUNT 5.33 mill/uL (4.70-6.10); RED CELL DISTRI WIDTH 13.3 % (11.5-15.5)
[2021-06-03 15:02] LABS: ACT PARTIAL THROMBO TIME 29.3 SECONDS (20.0-32.5); PROTHROMBIN TIME 10.4 SECONDS (9.0-12.5)
[2021-06-03 16:31] LABS: URINE BILIRUBIN - DIPSTICK NEGATIVE (NEGATIVE); URINE BLOOD DIPSTICK NEGATIVE (NEGATIVE); URINE COLOR YELLOW; URINE GLUCOSE - DIPSTICK NEGATIVE (NEGATIVE); URINE KETONE NEGATIVE (NEGATIVE); URINE LEUK ESTERASE NEGATIVE (NEGATIVE); URINE PROTEIN - DIPSTICK NEGATIVE (NEG-TRACE); URINE SPECIFIC GRAVITY 1.015; URINE UROBILINOGEN - DIPSTICK 0.2 E.U./dL (0.2)
[2021-06-03 16:34] LABS: URINE NITRITE - DIPSTICK NEGATIVE (Negative)
[2021-06-03] MEDS ORDERED: ULTRAM50 MG PO (16:54)
[2021-06-03] MEDS ORDERED: PROTONIX40 MG PO (16:54)
[2021-06-04] MEDS ORDERED: B12 FAST DIS5000 MCG (12:53)
[2021-06-04] MEDS ORDERED: FOLIC ACI1 PO (12:53)
[2021-06-04] MEDS ORDERED: GABAPENTIN300 M2 PO (12:53)
[2021-06-04] MEDS ORDERED: METOPROLOL SUCC50 MG PO (12:53)
[2021-06-04] MEDS ORDERED: VENLAFAXINE37.5 M2 PO (12:54)
== END 2021-06-03 17:25 | disposition home or self-care (01) ==
LOC: ED 13:34
DX: R10.10 Upper abdominal pain, unspecified (principal); I10 Essential (primary) hypertension; J43.9 Emphysema, unspecified; B19.20 Unspecified viral hepatitis C without hepatic coma; F41.9 Anxiety disorder, unspecified; F17.210 Nicotine dependence, cigarettes, uncomplicated; I25.2 Old myocardial infarction; Z86.73 Personal history of transient ischemic attack (TIA), and cerebral infarction without residual deficits
CPT/HCPCS: Q9967

== ENCOUNTER 2021-10-01 17:08 | Emergency (ER) | payer OTHER ==
[2021-10-01] VITALS (9 sets, daily range): BP systolic 121–166; BP diastolic 81–108
[~2021-10-01] VITALS: Ht 167.6 cm; Wt 110.0 kg
[~2021-10-01 17:08] MED LIST changes: +B12 FAST DIS5000 MCG; +B12 IM; +FOLIC ACI1 PO; +GABAPENTIN300 M2 PO; +METOPROLOL SUCC50 MG PO; +NITROGLYCERIN0.3 MG PO; +PROTONIX40 MG PO; +ULTRAM50 MG PO; +VENLAFAXINE37.5 M2 PO
[2021-10-01 18:03] LABS: IMMATURE GRANULOCYTES 0.7 % (0.0-5.0); MEAN CELL VOLUME 93.8 fL CALC (80.0-100.0); MEAN CORPUSCULAR HGB 29.9 pG CALC (26.0-32.0); MEAN CORPUSCULAR HGB CONC 31.9 g/dL CAL (32.0-36.0); NEUT# 5.3 thou/uL (1.82-7.42); RED BLOOD COUNT 5.01 mill/uL (4.70-6.10); RED CELL DISTRI WIDTH 13.1 % (11.5-15.5)
[2021-10-01 18:21] LABS: ALKALINE PHOSPHATASE 101 u/l (38-126); ANION GAP 10 (6-22 (CALC)); BILIRUBIN, TOTAL 0.8 mg/dL (0.0-1.4); BUN 5 mg/dL (9-20); BUN/CREATININE RATIO 7 (12-20 (CALC)); CARBON DIOXIDE 25 mmol/l (22-30); CHLORIDE 105 mmol/l (95-108); CREATININE 0.7 mg/dL (0.7-1.3); GFR FOR AFR.AMER. > 60 ML/MIN (>=60 (CALC)); GFR OTHER RACES > 60 ML/MIN (>=60 (CALC)); POTASSIUM 4.1 mmol/l (3.5-5.1); SGOT/AST 48 u/l (17-59); SODIUM 136 mmol/l (137-146); TOTAL PROTEIN 7.5 g/dL (6.3-8.2)
[2021-10-01 18:33] LABS: MYOGLOBIN 63 ng/mL (0 - 121)
== END 2021-10-01 19:01 | disposition left against medical advice (07) ==
LOC: ED 17:08
PROVIDERS: Emergency Medicine
DX: R07.9 Chest pain, unspecified (principal); I10 Essential (primary) hypertension; I25.10 Atherosclerotic heart disease of native coronary artery without angina pectoris; J43.9 Emphysema, unspecified; B19.20 Unspecified viral hepatitis C without hepatic coma; I25.2 Old myocardial infarction; F17.200 Nicotine dependence, unspecified, uncomplicated; Z86.73 Personal history of transient ischemic attack (TIA), and cerebral infarction without residual deficits; Z20.822 Contact with and (suspected) exposure to COVID-19; Z91.19 Patient's noncompliance with other medical treatment and regimen

== ENCOUNTER 2021-11-01 10:31 | Emergency (ER) | payer OTHER ==
[~2021-11-01] VITALS: Ht 167.6 cm; Wt 97.7 kg
[2021-11-01 11:12] LABS: HEMOGLOBIN 16.9 g/dl (14.0-18.0); IMMATURE GRANULOCYTES 0.3 % (0.0-5.0); MEAN CORPUSCULAR HGB 30.3 pG CALC (26.0-32.0); MEAN CORPUSCULAR HGB CONC 34.5 g/dL CAL (32.0-36.0); NEUT# 8.8 thou/uL (1.82-7.42); RED BLOOD COUNT 5.58 mill/uL (4.70-6.10); RED CELL DISTRI WIDTH 12.6 % (11.5-15.5)
[2021-11-01 11:22] LABS: GFR FOR AFR.AMER. > 60 ML/MIN (>=60 (CALC)); GFR OTHER RACES > 60 ML/MIN (>=60 (CALC))
[2021-11-01 11:23] LABS: MEAN CELL VOLUME 87.8 fL CALC (80.0-100.0)
[2021-11-01 11:40] LABS: ALBUMIN 4.4 g/dL (3.2-5.0); ALKALINE PHOSPHATASE 103 u/l (38-126); ANION GAP 18 (6-22 (CALC)); BUN 16 mg/dL (9-20); BUN/CREATININE RATIO 16 (12-20 (CALC)); CARBON DIOXIDE 21 mmol/l (22-30); CHLORIDE 100 mmol/l (95-108); GFR FOR AFR.AMER. > 60 ML/MIN (>=60 (CALC)); GFR OTHER RACES > 60 ML/MIN (>=60 (CALC)); POTASSIUM 3.9 mmol/l (3.5-5.1); SGOT/AST 57 u/l (17-59); SODIUM 135 mmol/l (137-146)
[2021-11-01 11:48] LABS: BILIRUBIN, TOTAL 2.4 mg/dL (0.0-1.4)
[2021-11-01 12:49] VITALS: BP 167/100
== END 2021-11-01 13:08 | disposition left against medical advice (07) ==
LOC: ED 10:31
PROVIDERS: Family Medicine
DX: R07.9 Chest pain, unspecified (principal); I10 Essential (primary) hypertension; J43.9 Emphysema, unspecified; E66.9 Obesity, unspecified; F41.9 Anxiety disorder, unspecified; B19.20 Unspecified viral hepatitis C without hepatic coma; I25.2 Old myocardial infarction; F17.210 Nicotine dependence, cigarettes, uncomplicated; Z86.73 Personal history of transient ischemic attack (TIA), and cerebral infarction without residual deficits; Z91.19 Patient's noncompliance with other medical treatment and regimen; Z20.822 Contact with and (suspected) exposure to COVID-19
CPT/HCPCS: Q9967